=== PATIENT | female | born 1990 | race Caucasian/White ===

== ENCOUNTER 2020-10-13 07:59 | Emergency (ER) | payer OTHER ==
[~2020-10-13 07:59] MED LIST: COLACE 100MG C100 MG PO; NORCO 5-325 TA1 EACH PO; PEPCID20 MG PO
[2020-10-13 09:18] LABS: HEMOGLOBIN 12.4 gm/dl (12.3-15.3); RED BLOOD COUNT 4.7 M/UL (4.00-5.10); WHITE BLOOD COUNT 9.1 K/UL (4.5-11.0)
[2020-10-13 09:31] LABS: BUN/CREATININE RATIO 14 (0-10)
[2020-10-13] MEDS ORDERED: LEVOFLOXACIN750 MG PO (10:49)
== END 2020-10-13 11:30 | disposition home or self-care (01) ==
LOC: ER1 07:59
PROVIDERS: Physician Assistant
DX: N12 Tubulo-interstitial nephritis, not specified as acute or chronic (principal); Z88.1 Allergy status to other antibiotic agents; Z88.8 Allergy status to other drugs, medicaments and biological substances
CPT/HCPCS: 80053; 81001; 83605; 84703; 85025; 87040; 87077; 87086; 87186; 96365; 96375; 99284; J0696; J1885; J7030

== ENCOUNTER 2020-11-15 23:31 | Emergency (ER) | payer OTHER ==
[~2020-11-15 23:31] MED LIST changes: +LEVOFLOXACIN750 MG PO
== END 2020-11-16 02:50 | disposition home or self-care (01) ==
LOC: ER1 23:31
DX: Z20.822 Contact with and (suspected) exposure to COVID-19 (principal)
CPT/HCPCS: 99283; U0002